=== PATIENT | female | born 1970 | race Caucasian/White ===

== ENCOUNTER 2021-12-23 19:58 | Outpatient (REF) | payer MEDICAID, SELFPAY ==
[2021-12-23 18:31] LABS: HCT 32.6 % (36.0-46.0); HGB 10.2 g/dL (11.2-15.7); MCH 26.9 pg (27.0-33.0); MCHC 31.3 % (32.0-36.0); MCV 86 fL (80-95); Platelet Count 301 10^3/uL (130-400); RBC 3.79 10^6/uL (3.93-5.22); RDW 13.2 % (11.7-14.6); RDW-SD 40.9 fL; WBC 6.31 10^3/uL (4.4-10.8)
[2021-12-23 19:16] LABS: ALT 24 U/L (14-59); AST 15 U/L (15-37); Albumin 3.6 g/dL (3.4-5.0); Alkaline Phosphatase 29 U/L (46-116); Anion Gap 5.4 mmol/L (3-11); BUN 13 mg/dL (7-18); Bilirubin, Total 0.2 mg/dL (0.2-1.0); CO2 29.6 mmol/L (21.0-32.0); CREATININE 0.7 mg/dL (0.55-1.02); Calculated LDL 99 mg/dL (<100); Chloride 105 mmol/L (98-107); Cholesterol 195 mg/dL (<200); Glucose 118 mg/dL (74-106); HDL Cholesterol 78 mg/dL (40-60); Potassium 4.4 mmol/L (3.5-5.1); Sodium 140 mmol/L (136-145); Total Protein 6.6 g/dL (6.4-8.2); Triglyceride 92 mg/dL (<150)
[2021-12-24 14:50] LABS: Iron 28 ug/dL (50-170); Total Iron Binding Capacity 422 ug/dL (250-450); Transferrin Sat 7 % (15-50)
== END 2021-12-23 19:59 | disposition home or self-care (01) ==
LOC: NCHCN 19:58
PROVIDERS: Visit Provider Nurse Practitioner Family
DX: Z00.00 Encounter for general adult medical examination without abnormal findings (principal)
CPT/HCPCS: 80053; 80061; 85027; 83540; 83550

== ENCOUNTER 2022-02-03 15:13 | Outpatient (REF) | payer MEDICAID, SELFPAY ==
[2022-02-03 21:47] LABS: Iron 106 ug/dL (50-170); Total Iron Binding Capacity 380 ug/dL (250-450); Transferrin Sat 28 % (15-50)
== END 2022-02-03 15:14 | disposition home or self-care (01) ==
LOC: NCHCN 15:13
PROVIDERS: Visit Provider Nurse Practitioner Family
DX: E61.1 Iron deficiency (principal)
CPT/HCPCS: 83540; 83550

== ENCOUNTER 2022-04-18 17:18 | Outpatient (REF) | payer MEDICAID, SELFPAY ==
[2022-04-18 17:46] LABS: HCT 38.4 % (36.0-46.0); HGB 12.4 g/dL (11.2-15.7); MCHC 32.3 % (32.0-36.0); MCV 93 fL (80-95); MPV 11.2 fL (8.0-11.0); Platelet Count 243 10^3/uL (130-400); RBC 4.14 10^6/uL (3.93-5.22); RDW 14.7 % (11.7-14.6); RDW-SD 50.2 fL; WBC 5.24 10^3/uL (4.4-10.8)
== END 2022-04-18 17:19 | disposition home or self-care (01) ==
LOC: NCHCN 17:18
PROVIDERS: Visit Provider Nurse Practitioner Family
DX: E61.1 Iron deficiency (principal)
CPT/HCPCS: 85027

== ENCOUNTER 2022-05-05 15:40 | Outpatient (REF) | payer MEDICAID, SELFPAY ==
--- NOTE | 2022-05-05 13:30 | PAPFT_PTH ---
PATIENT: Bina Hernandez LOC: [facility] U#:[id number] AGE/SX: 51/F ROOM: RE05/05/[address]: Tomasa Shankar : 1970 BED: DIS: 05/05/2022 SPEC #: [id number] RECD: 05/06/22 13:09 STATUS: LANDEN RESina #: [id number] EVER: 05/05/22 13:[address]: Tomasa Shankar DEPT: [facility] Cytology RECD BY: Mandie Askew ENTERED: 05/06/22 13:09 SP TYPE: PAPFT OTHR DR: Selene Goodwin Tissues: 1 - CX/ENDOCX FOR PAP SMEARS Procedures: PAP THIN PREP/[facility] Screening HPV DNA PROBE Comments: [id number] (CHLAMYDIA/GC)
[2022-05-09 12:50] LABS: Chlamydia Result Negative (Negative); GC Result Negative (Negative)
== END 2022-05-05 15:41 | disposition home or self-care (01) ==
LOC: NCHCN 15:40
PROVIDERS: Visit Provider Nurse Practitioner Family
DX: Z12.4 Encounter for screening for malignant neoplasm of cervix (principal); Z11.3 Encounter for screening for infections with a predominantly sexual mode of transmission
CPT/HCPCS: 87491; 87591; 88142; 87624

== ENCOUNTER 2022-06-03 00:41 | Outpatient (CLI) | payer MEDICAID, SELFPAY ==
--- NOTE | 2022-06-03 | DI.MRI_ITS ---
Exam(s) MR PELVIS WO/W EXAM: MR PELVIS WO/W CLINICAL HISTORY: PELVIC MASS, R19.00, PALPABLE ABOVE SYMPHYSIS PUBIS TECHNIQUE: Multiplanar multisequence MRI of the pelvis was performed. CONTRAST MATERIAL: IV Contrast: 13 ML of Dotarem contrast administered. COMPARISON: No exams were available for comparison FINDINGS: Reproductive organs: The uterus is enlarged measuring 14.5 long by 8.3 AP by 10.2 transverse cm. The endometrial stripe is unremarkable. There are several myometrial masses present. The largest is in the lower uterine segment of the anterior body and measures 6.7 x 6.4 cm. It is T1 and T2 hypoechoi c with peripheral flow voids. The next largest measures 5.9 x 5.8 cm and is located in the right fun damon region.They show variable enhancement following contrast administration. These are most suggesti ve of uterine fibroids. Ovaries: Both ovaries were visualized and are grossly unremarkable. Bowel: The visualized bowel is unremarkable. Urinary bladder: Nondistended but grossly unremarkable. Bones: Unremarkable. Soft tissues: Unremarkable. Vasculature: Unremarkable. IMPRESSION: Enlarged fibroid uterus. The largest fibroid measures 6.7 x 6.4 cm. DATA REPOSITORY:
[2022-06-03] MEDS: Gadoterate meglumine 20 ML VIAL IVP (09:04)
== END 2022-06-03 01:01 ==
PROVIDERS: Visit Provider Nurse Practitioner Family
DX: R19.09 Other intra-abdominal and pelvic swelling, mass and lump (principal); N85.2 Hypertrophy of uterus; D25.9 Leiomyoma of uterus, unspecified
CPT/HCPCS: 72197